=== PATIENT | male | born 1980 | race Caucasian/White ===

== ENCOUNTER 2023-03-13 15:17 | Outpatient (CLI) | payer MEDICAID | END 2023-03-13 15:18 | disposition home or self-care (01) | LOC: CSHRAD 15:17 | PROVIDERS: ATTEND Chiropractor | DX: M50.30 Other cervical disc degeneration, unspecified cervical region (principal); M47.812 Spondylosis without myelopathy or radiculopathy, cervical region | CPT/HCPCS: 72040 ==